=== PATIENT | female | born 1935 | race Caucasian/White ===

== ENCOUNTER 2018-10-04 20:21 | Inpatient (IN) | payer MEDICARE ==
[~2018-10-04] VITALS: Ht 154.9 cm; Wt 67.2 kg
[~2018-10-04 20:21] MED LIST: FER325T PO; METO-169 OR; NOR7.5T GT
--- NOTE | 2018-10-04 22:30 | NUR ---
Direct Admit Note SHERIDAN FRITZ admitted to Telemetry/MS unit as a direct admit per MD DAVILA order. Patient oriented to RACQUEL FERRO, primary RN, unit, room, bed, and unit policies regarding patient care and visiting hours. Patient now on continuous telemetry monitoring, tele box #8. Patient placed on bedside oxygen at 2L, weighed by bedscale and encouraged to call if they need something. Bed locked in lowest position, side rails upx2, call light within reach. All questions and concerns addressed, patient verbalized understanding. MD notified of patients arrival and admit orders received.
[2018-10-04] MEDS ORDERED: NITROGLYCERIN 0.4 MG SL TAB SL PRN (23:15)
[2018-10-04] MEDS ORDERED: MORPHINE SULF INJ 2 MG/ML SYRINGE 1ML IV PRN (23:15)
[2018-10-04 23:50] VITALS: BP 117/70
[2018-10-05 05:45] VITALS: BP 117/71
--- NOTE | 2018-10-05 06:42 | NUR ---
IV insertion IV access obtained, via clean sterile technique by inserting 20 gauge catheter at LEFT FOREARM after 1 attempt(s). IV secured properly. No trauma to site. Patient tolerated well.
--- NOTE | 2018-10-05 06:43 | NUR ---
EKG done as ordered, placed in chart.
[2018-10-05 07:35] LABS: Basophils # (auto) 0.1 uL; Basophils % (auto) 1.1 % (0.0-2.0); Eosinophils # (auto) 0.4 uL; Eosinophils % (auto) 5.3 % (0.0-7.0); Hematocrit 30.2 % (36.0-46.0); Hemoglobin 10.2 g/dL (12.2-16.2); Lymphocytes # (auto) 1.6 uL; Lymphocytes % (auto) 21.5 % (10.0-50.0); Mean Corpuscular Hemoglobin 30.9 pg (28.0-32.0); Mean Corpuscular Hgb Conc. 33.7 g/dL (32.0-36.0); Mean Corpuscular Volume 91.9 fL (80.0-100.0); Monocytes # (auto) 0.7 uL; Monocytes % (auto) 9.5 % (0.0-12.0); Neutrophils # (auto) 4.8 uL; Neutrophils % (auto) 62.6 % (37.0-80.0); Nucleated Red Blood Cells % 0.1 %; Platelet Count (auto) 214 10^3/uL (140-450); Red Blood Cells 3.29 10^6/uL (4.0-5.20); Red Cell Distribution Width 14.5 % (11.8-14.3); White Blood Cell 7.6 10^3/uL (4.4-10.8)
[2018-10-05 07:41] LABS: INR 1.32 (0.9-1.15); Partial Thromboplastin Time 25.3 sec (23.64-32.05)
[2018-10-05 08:08] LABS: Potassium 4.1 mmol/L (3.5-5.1)
[2018-10-05 08:18] LABS: BUN/Creatinine Ratio 18.8; Calcium 8.5 mg/dL (8.5-10.1)
--- NOTE | 2018-10-05 08:40 | NUR ---
PT UP TO BR. HR IS IN 130'S. PT REPORTS FEELING ANXIOUS "NOT QUITE RIGHT" BUT NOT REALLY SOB GIVEN TEACHING ABOUT PROCEDURE, STATES SHE HAS HAD ANGIOGRAM IN PAST, REFRESHED ON DETAILS.
[2018-10-05 09:00] VITALS: BP 132/76
[2018-10-05] MEDS ORDERED: ASPirin 81 mg TAB PO SCH (10:00)
[2018-10-05] MEDS ORDERED: METOPROLOL TARTRATE 50 MG TAB PO SCH (10:00)
[2018-10-05] MEDS: METOPROLOL TARTRATE 50 MG TAB PO SCH (10:25)
--- NOTE | 2018-10-05 11:30 | NUR ---
TO CROP PICKER VIA BED
[2018-10-05] MEDS ORDERED: ANGIOMAX 250 MG VIAL IV ONE (12:29)
[2018-10-05] MEDS ORDERED: SODIUM CHL 0.9% 0 ML ONE (12:30)
[2018-10-05] MEDS ORDERED: LIDOCAINE 2%HCL (LOCAL ANESTH.) INJ 20ML MDV ONE (12:30)
[2018-10-05] MEDS ORDERED: IOHEXOL 350 MG/ML 100ML IJ ONE (12:30)
[2018-10-05] MEDS ORDERED: MIDAZOLAM HCL 1MG/1ML-2 ML VIAL ONE (12:30)
[2018-10-05] MEDS ORDERED: fentaNYL CITRATE 100 MCG/2 ML VL ONE (12:30)
[2018-10-05] MEDS ORDERED: IODIXANOL 320MG/ML 100ML BTL IV ONE (12:36)
[2018-10-05] MEDS ORDERED: RIVAROXABAN 10 MG TAB PO ONE (13:30)
[2018-10-05] MEDS ORDERED: CLOPIDOGREL BISULFATE 75 MG TAB PO ONE (13:30)
--- NOTE | 2018-10-05 14:10 | NUR ---
RETURNED TO BED 246A FROM [employer] WORKER REPORT REC'D FROM [facility]. ANGIO SITE RT GROIN WITH 2X2, SCANT BLOODY DRAINAGE. SITE IS SOFT AND POST TIB AND PEDAL PULSES ARE WEAK BUT PALPABLE. REMAINS IN ATRIAL FIB, CONTROLLED RATE
[2018-10-05] MEDS ORDERED: ONDANSETRON HCL 4 MG/2 ML VIAL ONE (16:05)
[2018-10-05] MEDS ORDERED: ONDANSETRON HCL 4 MG/2 ML VIAL IV PRN (16:15)
[2018-10-05 17:00] VITALS: BP 136/82
--- NOTE | 2018-10-05 19:30 | NUR ---
Opening Shift Note Assumed care of patient, awake and alert, sitting up at bedside eating dinner. No S/S of distress/SOB or pain. Right groin site soft to touch, no hematoma noted. Bed locked in lowest position, side rails upx2, call light within reach. Instructed on POC and to call for assist PRN, will continue to monitor for changes Q1hr and PRN.
[2018-10-05 22:04] VITALS: BP 123/68
[2018-10-06 05:27] VITALS: BP 127/71
--- NOTE | 2018-10-06 08:30 | NUR ---
Opening Shift Note Assumed care of patient, awake and alert. No S/S of distress/SOB or pain. Instructed on POC and to call for assist PRN, will continue to monitor for changes Q1hr and PRN.
--- NOTE | 2018-10-06 08:45 | NUR ---
Last BM on , Dr. Hall paged.
[2018-10-06 08:50] VITALS: BP 150/93
--- NOTE | 2018-10-06 09:13 | NUR ---
HR up to about 150s , Dr. Rafael jovel.
[2018-10-06] MEDS ORDERED: MAGNESIUM CITRATE SOLUTION 300 ML BTL PO ONE (09:15)
[2018-10-06] MEDS: RIVAROXABAN 10 MG TAB PO SCH (09:33)
[2018-10-06] MEDS: METOPROLOL TARTRATE 50 MG TAB PO SCH ×2 (09:33→22:47)
[2018-10-06] MEDS ORDERED: CLOPIDOGREL BISULFATE 75 MG TAB PO SCH (10:00)
--- NOTE | 2018-10-06 10:46 | NUR ---
Received a call from Dr. Hall with new orders, noted and carried out.
[2018-10-06 13:00] VITALS: BP 116/71
[2018-10-06 13:35] LABS: Urine Bacteria NONE SEEN /hpf (None Seen); Urine Blood Negative /uL (Negative); Urine Mucus FEW (None Seen); Urine WBC 2 /hpf (0 - 5)
[2018-10-06] MEDS ORDERED: DIGOXIN 0.25 MG TAB PO ONE (15:00)
[2018-10-06 17:00] VITALS: BP 138/77
--- NOTE | 2018-10-06 19:20 | NUR ---
OPENING NOTE Received report from day shift RN. Patient is A&O X's 4 with no s/s of distress noted. Patient is currently sitting on chair at bedside. Assisted patient back into bed at this time. Educated patient on POC and to use call light when in need of assistance and in need of ambulating. Patient verbalized understanding. Bed is in lowest/locked position with side rails up X's 2 and call light is within reach of patient.
[2018-10-06 21:30] VITALS: BP 133/75
[2018-10-07 05:35] VITALS: BP 114/82
[2018-10-07 09:00] VITALS: BP 120/82
[2018-10-07] MEDS: RIVAROXABAN 10 MG TAB PO SCH (09:25)
[2018-10-07] MEDS: METOPROLOL TARTRATE 50 MG TAB PO SCH ×2 (09:27→22:13)
[2018-10-07] MEDS: DIGOXIN 0.125 MG TAB PO SCH (09:28)
--- NOTE | 2018-10-07 12:44 | NUR ---
Nutrition Assessment Notes please see attached link for complete assessment Est. Needs BW 67 [id number] kcal (23-25 kcal/kgBW), 53-67 gms pro (0.8-1.0 gms/kgBW d/t elev RFT ). Will continue to monitor pertinent labs and reassess nutrient need prn. Addendum: 10/07/18 at [address] Amended: Links added.
[2018-10-07 13:00] VITALS: BP 133/83
[2018-10-07 17:00] VITALS: BP 121/76
--- NOTE | 2018-10-07 19:20 | NUR ---
OPENING NOTE Received report from day shift RN. Patient is sitting in chair at bedside with bedside table in front of her for safety. Patient shows no s/s of distress. Patient reports no pain. Educated patient on POC and to use call light when in need of assistance. Patient verbalized understanding. Call light is within reach of patient. Will continue care.
[2018-10-07 22:00] VITALS: BP 119/81
[2018-10-08 05:00] VITALS: BP 129/79
--- NOTE | 2018-10-08 06:51 | NUR ---
ROUNDS Patient resting in chair at bedside. No s/s of distress.
[2018-10-08 09:00] VITALS: BP 123/78
[2018-10-08] MEDS: METOPROLOL TARTRATE 50 MG TAB PO SCH ×2 (09:22→21:33)
[2018-10-08] MEDS: RIVAROXABAN 10 MG TAB PO SCH (09:22)
[2018-10-08] MEDS: DIGOXIN 0.125 MG TAB PO SCH (09:23)
--- NOTE | 2018-10-08 11:22 | NUR ---
Patient's heart rhythm switched from atrial fibrillation to atrial flutter. Dr. Hall notified.
--- NOTE | 2018-10-08 12:10 | NUR ---
EKG obtained as requested by Dr. Hall. No new orders received.
[2018-10-08 13:00] VITALS: BP 144/84
--- NOTE | 2018-10-08 14:27 | NUR ---
Received discharge orders from Dr. Hall for tomorrow morning. Per MD, home health does not need to be set up for discharge.
--- NOTE | 2018-10-08 15:00 | NUR ---
Received call from Ana from [facility]. Faxed requested clinical documents. . Phone number is [phone].
[2018-10-08 17:00] VITALS: BP 141/74
[2018-10-08] MEDS ORDERED: IBUPROFEN 400 MG TAB PO PRN (17:15)
--- NOTE | 2018-10-08 19:17 | NUR ---
Change of shift given to night cleaner RN. No distress noted.
--- NOTE | 2018-10-08 19:27 | NUR ---
Opening Shift Note Assumed care of patient, awake and alert x 4. No S/S of distress/SOB Bed is in lowest position and locked. Call light within reach. Board updated. Tele box number matches monitor and leads are in correct placement. Instructed on POC and to call for assist PRN, will continue to monitor for changes Q1hr and PRN.
--- NOTE | 2018-10-08 20:14 | NUR ---
Patient taken off supplemental oxygen to see if she can breathe well and oxygenate without nasal canula. O2 sat currently 95% on RA.
--- NOTE | 2018-10-08 21:32 | NUR ---
Patient is currently 96% on RA. Will continue to try to wean patient off supplemental oxygen.
[2018-10-08 22:00] VITALS: BP 123/53
--- NOTE | 2018-10-09 01:31 | NUR ---
Patient placed back on oxygen at 2l/min NC. Patient reported some shortness of breath while rounding on patient. Patient's oxygen saturation was 86% on RA. Patient placed back on nasal canula at 2 l/min. O2 sat lilly to 94%. Will continue to monitor.
--- NOTE | 2018-10-09 04:02 | NUR ---
Nasal canula removed. Patient back on RA.
--- NOTE | 2018-10-09 04:39 | NUR ---
Patient's O2 sat is holding stable at 96% on RA.
[2018-10-09 05:00] VITALS: BP 134/75
--- NOTE | 2018-10-09 06:38 | NUR ---
Patient's O2 sat is 96% on RA.
[2018-10-09 06:43] VITALS: BP 134/75
--- NOTE | 2018-10-09 08:30 | NUR ---
Patient right groin assessed. No hematoma noted on palpitation and observation. Incision is asymptomatic and open to air.
[2018-10-09 09:19] VITALS: BP 142/96
[2018-10-09] MEDS: METOPROLOL TARTRATE 50 MG TAB PO SCH (09:29)
[2018-10-09] MEDS: RIVAROXABAN 10 MG TAB PO SCH (09:30)
[2018-10-09] MEDS: DIGOXIN 0.125 MG TAB PO SCH (10:00)
--- NOTE | 2018-10-09 10:02 | NUR ---
Prescriptions called in to patient's preferred pharmacy as ordered by . Dr. Hall notified of copay. Awaiting call back.
--- NOTE | 2018-10-09 10:30 | NUR ---
Dr. Hall returned page per MD continue with Discharge, Patient is to return to Dr. Ennis office tomorrow for xarelto prescription.
[2018-10-09 12:20] VITALS: BP 145/83
--- NOTE | 2018-10-09 12:51 | NUR ---
Patient stated she had a DVT at [facility] "this Wednesday." Dr. Hall notified. Per MD, continue with discharge and light activity. Xarelto dose given today and per MD have patient return to office tomorrow morning for additional prescription. Patient and family verbalized understanding. Proceed with discharge.
[2018-10-09 13:00] VITALS: BP 128/96
[2018-10-09 13:10] VITALS: BP 145/83
--- NOTE | 2018-10-09 13:43 | NUR ---
Discharge instructions given as ordered. Encourage to follow up with PMD as instructed. All questions and concerns addressed. Patient verbalized understanding. Medication reconciliation form completed and copy given to patient. Patient denies home medications held in pharmacy. IV removed with catheter intact, pressure dressing applied. Telemetry unit returned to ICU. Patient taken to vehicle via wheelchair with all personal belongings, accompanied by staff and family member. No distress noted at time of departure. Patient and family verbalized understanding to car pick up driver prescriptions at patients preferred pharmacy. Patient and family verbalized understanding to return to Dr. Ennis office tomorrow morning for additional Xarelto prescription.
== END 2018-10-09 13:43 | disposition home health service (06) | DRG 287 ==
LOC: TELE 22:49 → TELE-EAST 22:57
PROVIDERS: ADMIT Internal Medicine Cardiovascular Disease; ATTEND Internal Medicine Cardiovascular Disease
PROC: B2111ZZ Fluoroscopy of Multiple Coronary Arteries using Low Osmolar Contrast (ICD-10-PCS; principal; 2018-10-05)
PROC: B41C1ZZ Fluoroscopy of Pelvic Arteries using Low Osmolar Contrast (ICD-10-PCS; 2018-10-05)
DX: I48.1 Persistent atrial fibrillation (principal); D68.59 Other primary thrombophilia; I50.20 Unspecified systolic (congestive) heart failure; I25.5 Ischemic cardiomyopathy; I11.0 Hypertensive heart disease with heart failure; I08.0 Rheumatic disorders of both mitral and aortic valves; D64.9 Anemia, unspecified; I25.10 Atherosclerotic heart disease of native coronary artery without angina pectoris; N28.9 Disorder of kidney and ureter, unspecified; Z95.5 Presence of coronary angioplasty implant and graft; Z87.891 Personal history of nicotine dependence; Z91.018 Allergy to other foods
CPT/HCPCS: 36415; 71045; 75736; 80048; 81001; 82962; 85025; 85610; 85730; 93005; 93306; 93454; 99152; G0378; J2250; J2405; Q9967

== ENCOUNTER 2018-11-18 23:28 | Inpatient (IN) | payer MEDICARE ==
[~2018-11-18] VITALS: Ht 170.2 cm; Wt 69.0 kg
[2018-11-18 23:30] VITALS: BP 122/81
[2018-11-19] VITALS (35 sets, daily range): BP systolic 100–141; BP diastolic 58–94
[2018-11-19 04:20] LABS: Eosinophils # (auto) 0.5 uL; Monocytes # (auto) 0.9 uL; Neutrophils # (auto) 3.9 uL
[2018-11-19 04:24] LABS: Basophils # (auto) 0.2 uL; Basophils % (auto) 2.6 % (0.0-2.0); Eosinophils % (auto) 6.1 % (0.0-7.0); Hematocrit 24.1 % (36.0-46.0); Lymphocytes # (auto) 2.4 uL; Lymphocytes % (auto) 30.3 % (10.0-50.0); Mean Corpuscular Hemoglobin 30.9 pg (28.0-32.0); Mean Corpuscular Volume 93.5 fL (80.0-100.0); Monocytes % (auto) 11.6 % (0.0-12.0); Neutrophils % (auto) 49.4 % (37.0-80.0); Platelet Count (auto) 308 10^3/uL (140-450); Red Blood Cells 2.58 10^6/uL (4.0-5.20); Red Cell Distribution Width 17.3 % (11.8-14.3)
[2018-11-19 04:49] LABS: Alanine Aminotransferase 49 U/L (13-56); Albumin 2.8 g/dL (3.4-5.0); Alkaline Phosphatase 66 U/L (45-117); Aspartate Aminotransferase 24 U/L (15-37); BUN/Creatinine Ratio 14.4; Bilirubin, Total 0.4 mg/dL (0.2-1.0); Blood Urea Nitrogen 16 mg/dL (7-18); Calcium 8.2 mg/dL (8.5-10.1); Carbon Dioxide 20 mmol/L (21-32); GFR African American 61 mL/min; GFR Non-African American 50 mL/min; Glucose 89 mg/dL (74-106); Total Protein 6.1 g/dL (6.4-8.2)
[2018-11-19 04:51] LABS: Anion Gap 8 (5-15); Chloride 115 mmol/L (98-107); Potassium 4.2 mmol/L (3.5-5.1); Sodium 143 mmol/L (136-145)
--- NOTE | 2018-11-19 07:30 | NUR ---
OPENING SHIFT NOTE REPORT RECEIVED FROM DENTAL ASSISTANT INSTRUCTOR RN, MORNING ASSESSMENT PERFORMED AND DOCUMENTED. 83 YEAR OLD FEMALE, SITTING UP IN BED, ALERT AND ORIENTED X4, NO DISTRESS NOTED, RESPIRATIONS EVEN AND UNLABORED ON ROOM AIR, VSS AND DOCUMENTED. PATIENT DENIES PAIN OR DISCOMFORT AT THIS TIME. PATIENT ADJUSTED IN BED, TOLERATED WELL. WOUND CARE ASSESSMENT PERFORMED, NOTED SKIN TEAR TO LEFT BUTTOCK - WOUND CARE CONSULT AND PICS WILL BE TAKEN. CALL LIGHT AND ALL PERSONAL BELONGINGS WITHIN REACH. FALL AND SAFETY PRECAUTIONS IN PLACE.
--- NOTE | 2018-11-19 08:55 | NUR ---
PATIENT SITTING UP ON EDGE OF BED PATIENT REPORTING "PAIN TO B/L LOWER EXTREMITIES, FEELS LIKE A SHOCKING PAIN, I USUALLY TAKE TYLENOL AT HOME FOR PAIN". PATIENT REQUESTED TO DANGLE HER LEGS, SITTING UP ON EDGE OF BED AND TOLERATING WELL. BEDSIDE TABLE AT BEDSIDE, WATER AND ALL PERSONAL BELONGINGS, PATIENT TOLERATING WELL. PAGED DR DAVILA, AWAITING RESPONSE.
--- NOTE | 2018-11-19 10:16 | NUR ---
RETURN CALL FROM DR ADVILA ORDERS FOR SOMA 350 PO BID RECEIVED, PATIENT AWARE.
[2018-11-19] MEDS ORDERED: CARISOPRODOL 350 MG TAB PO ONE (10:30)
[2018-11-19] MEDS: AMIODARONE HCL 200 MG TAB PO SCH ×2 (11:15→22:14)
--- NOTE | 2018-11-19 13:42 | NUR ---
DR DAVILA AT BEDSIDE UPDATED ON PATIENT'S STATUS, ORDERS FOR 1 UNIT PRBC RECEIVED AND MEDICATION TO DECREASE HEART RATE. REGARDING DOWNGRADE, DR DAVILA STATED "NO NOT UNIT HEART RATE IS CONTROLLED, HOWEVER IF ICU REALLY NEEDS A BED CALL ME FIRST BEFORE DOWNGRADING". FRANCISCO, CHARGE NURSE AWARE.
[2018-11-19] MEDS ORDERED: DIGOXIN (250MCG/ML) 2 ML AMPULE IV SCH (13:45)
[2018-11-19] MEDS: METOPROLOL SUCCINATE XL 50 MG TAB PO SCH ×2 (14:20→22:15)
--- NOTE | 2018-11-19 15:39 | NUR ---
PAGED DR DAVILA FOR BLOOD CONSENT AWAITING T/O FROM DR DAVILA FOR BLOOD CONSENT.
--- NOTE | 2018-11-19 17:19 | NUR ---
SHORE CATHETER CHANGED PATIENT NOTIFIED THIS NURSE AND JEANCARLOS, STUDENT NURSE "I HAVE TO PEE AND I'M GOING TO PEE ON ALL THE SHEETS". PATIENT AWARE OF SHORE CATHETER PLACEMENT BUT STATED SHE STILL FELT THE URGE, PATIENT SHORE CATHETER READJUSTED, THEN ASSISTED TO EDGE OF BED, THEN BEDSIDE COMMODE WITH NO SUCCESS, PATIENT CONTINUES TO REPORT URGE TO PEE. SHORE CATHETER DISCONTINUED WHILE ON BEDSIDE COMMODE AND NO URINE PRESENT ONLY PASSING GAS. PATIENT ASSISTED BACK TO BED AND 16 GAMBIAN SHORE CATHETER REINSERTED VIA STERILE TECHNIQUE AFTER OBTAINING VERBAL CONSENT FROM PATIENT. PATIENT TOLERATED WELL, 5 MLS COLLECTED AND SENT TO LAB FOR UA AND UA CULTURE. COMFORT MEASURES PROVIDED, FALL AND SAFETY PRECAUTIONS IN PLACE.
--- NOTE | 2018-11-19 17:39 | NUR ---
BLOOD TRANSFUSION STARTED/IV DC'D/INSERTED VSS AND DOCUMENTED, DISCUSSED S/S WITH PATIENT, PATIENT VERBALIZED UNDERSTANDING. IV TO RIGHT AC DISCONTINUED WITH CATHETER FULLY INTACT. IV REINSERTED BY JEANCARLOS STUDENT RN VIA STERILE TECHNIQUE BY INSERTING 20 GAUGE CATHETER AFTER ONE ATTEMPT. IV SECURED PROPERLY. NO TRAUMA TO SITE, PATIENT TOLERATED WELL.
--- NOTE | 2018-11-19 18:00 | NUR ---
15 MIN TRANSFUSION REASSESSMENT BLOOD TRANSFUSING, VSS AND DOCUMENTED. PATIENT DENIES ANY PAIN, DISCOMFORT OF REACTION TO BLOOD TRANSFUSION. PATIENT CONVERSING APPROPRIATELY. INCREASED BLOOD RATE TO 120 MLS/HR. CALL LIGHT WITHIN REACH.
[2018-11-19] MEDS: RIVAROXABAN 15 MG TAB PO SCH (18:03)
--- NOTE | 2018-11-19 18:35 | NUR ---
FAMILY AT BEDSIDE
[2018-11-19 19:10] LABS: Urine Amorphous Crystal FEW /hpf (None Seen); Urine Bacteria FEW /hpf (None Seen); Urine Blood 2+ /uL (Negative); Urine Hyaline Cast FEW /lpf (0 - 2); Urine Mucus FEW (None Seen); Urine Specific Gravity 1.021 (1.001-1.035); Urine WBC 10 /hpf (0 - 5)
--- NOTE | 2018-11-19 19:21 | NUR ---
END OF SHIFT NOTE BLOOD TRANSFUSION IN PROCESS, ENDORSED COMPLETION AND DOCUMENTATION WELL CONTINUED CARE TO TOOL SHARPENER RN.
--- NOTE | 2018-11-19 19:30 | NUR ---
ADMITTED WITH ATRIAL FIB RVR A DIRECT ADMIT FROM [facility] TO DR DAVILA. RECEIVED AMIODARONE, DIGOXIN AND TOPROL. HR IN THE 90S. REMAINS IN ATRIAL FIB. ATE 100% OF MEAL. SHORE IN PLACE. HYPERPIGMENTATION LOWER EXTREMITIES. NO IV FLUID. SBP NORMAL. UPC FINISHING AND FLUSHING THROUGH.
--- NOTE | 2018-11-19 20:00 | NUR ---
ADMITTED THIS MORNING A DIRECT ADMIT FROM [facility]. ATRIAL FIB RVR CONTROLLED WITH AMIODARONE, DIGOXIN AND METOPROLOL. HR 94. SBP STABLE. NO FEVER. 2LNP. O2 SATURATION 99%. LUNGS CLEAR. ABDOMEN SOFT. NO BM TODAY. SHORE IN PLACED DRAINING CLEAR YELLOW LIQUID TO DOWN DRAIN BAG. ALERT. ORIENTED. 2 SCABS ON LIP. MOISTURE APPLIED TO LIPS. 2 SMALL SCABS ON LEFT FOREARM COVERED WITH A FOAM DRESSING. SKIN IS VERY TANNED, DRY. BILATERAL LOWER LEG PITTING EDEMA. HYPERPIGMENTATION OF LOWER EXTREMITIES. DIFFICULTY FEELING PULSES. NO PEDAL ON THE RIGHT, DOPPLER BILATERAL POSTIB AND LEFT PEDAL. LEFT ANKLE IS SHRUNKEN, THE RIGHT IS SWOLLEN.
[2018-11-19] MEDS ORDERED: METOPROLOL SUCCINATE XL 50 MG TAB PO SCH (22:00)
--- NOTE | 2018-11-19 22:00 | NUR ---
PATIENT IS AWAKE. ORIENTED AND YET ASKING WHY ALL THE LIGHTS IN THE UNIT ARE ON. FEELS LIKE SHE HAS TO URINATE. KNOWS SHE HAS A CATHETER. UP IN THE CHAIR, BACK TO BED, UP IN THE CHAIR. FRUSTRATED. UNABLE TO SLEEP. CALL LIGHT NEAR HER.
[2018-11-19] MEDS: CARISOPRODOL 350 MG TAB PO SCH (22:14)
--- NOTE | 2018-11-19 23:00 | NUR ---
PLACED BACK IN BED. HOB ELEVATED. 3 BLANKETS.
[2018-11-20] VITALS (14 sets, daily range): BP systolic 101–136; BP diastolic 62–85
--- NOTE | 2018-11-20 | NUR ---
VSS. ATRIAL FIB CONTROLLED RATE 90-100. SBP 120-130. ALERT. ORIENTED. LUNGS CLEAR. ROOM AIR. BILATERAL LOWER LEG PITTING EDEMA. FEET COOL. LEGS WARM. PEDAL POSTIB PULSES WITH DOPPLER ONLY. NO PEDAL RIGHT FOOT. ONE PERIPHERAL IV WITH NO FLUID GOING. TOOK JUST A FEW SIPS WITH 2200 MEDS. SHORE: ADEQUATE OUTPUT.
--- NOTE | 2018-11-20 02:00 | NUR ---
VSS. ATRIAL FIB RATE 85-100. SLEEPING OFF AND ON. ONE PERIPHERAL IV SHOWS NO REDNESS OR SWELLING. SHORE DRAINING CLEAR YELLOW LIQUID TO DOWN DRAIN BAG.
--- NOTE | 2018-11-20 03:27 | NUR ---
AM LAB DRAW
--- NOTE | 2018-11-20 04:00 | NUR ---
PATIENT STATED THAT SHE HAS NOT HAD A DECREASED IN LEG CRAMPS SINCE TAKING THE SOMA. PATIENT STATED THAT KEEPING HER LEGS WARM IS A BETTER ANSWER. VSS. SLEEPING OFF AND ON. IV HEPLOCK PATENT. NO REDNESS OR SWELLING AT SITE. PITTING EDEMA PERSISTS IN HER LEGS. LUNGS CLEAR. ATRIAL FIB CONTROLLED RATE 79-90.
[2018-11-20 04:38] LABS: Basophils # (auto) 0.1 uL; Eosinophils # (auto) 0.3 uL; Eosinophils % (auto) 3.8 % (0.0-7.0); Hematocrit 27.6 % (36.0-46.0); Hemoglobin 9.7 g/dL (12.2-16.2); Lymphocytes % (auto) 22.8 % (10.0-50.0); Mean Corpuscular Hemoglobin 32.5 pg (28.0-32.0); Mean Corpuscular Hgb Conc. 35.2 g/dL (32.0-36.0); Mean Corpuscular Volume 92.4 fL (80.0-100.0); Monocytes # (auto) 0.9 uL; Monocytes % (auto) 10.6 % (0.0-12.0); Neutrophils # (auto) 5.3 uL; Neutrophils % (auto) 61.8 % (37.0-80.0); Nucleated Red Blood Cells % 0.1 %; Platelet Count (auto) 306 10^3/uL (140-450); Red Blood Cells 2.98 10^6/uL (4.0-5.20); Red Cell Distribution Width 16.2 % (11.8-14.3); White Blood Cell 8.6 10^3/uL (4.4-10.8)
[2018-11-20 04:54] LABS: Potassium 4.4 mmol/L (3.5-5.1)
[2018-11-20 05:00] LABS: BUN/Creatinine Ratio 18.9
--- NOTE | 2018-11-20 06:00 | NUR ---
WOKE UP . BOOSTED HER UP IN BED. LIKES TO SIT AT ABOUT A 40 DEGREE ANGLE. ATRIAL FIB CONTROLLED RATE 78-90. ONE HEPLOCK NOT IN USE.
--- NOTE | 2018-11-20 08:50 | NUR ---
OPENING Received report from Jhonatan altamirano RN. Care initiated and initial assessment completed.
--- NOTE | 2018-11-20 09:30 | NUR ---
SITTING Patient sitting at the edge of bed reading and finishing breakfast.
[2018-11-20] MEDS: CARISOPRODOL 350 MG TAB PO SCH ×2 (10:20→21:36)
[2018-11-20] MEDS: AMIODARONE HCL 200 MG TAB PO SCH ×2 (10:20→21:35)
[2018-11-20] MEDS: METOPROLOL SUCCINATE XL 50 MG TAB PO SCH ×2 (10:21→21:36)
--- NOTE | 2018-11-20 10:25 | NUR ---
BACK IN BED Patient is back in bed resting at this time. Required moderate assistance.
[2018-11-20] MEDS ORDERED: FUROSEMIDE 40 MG/4 ML VIAL IV ONE (12:00)
[2018-11-20] MEDS ORDERED: POTASSIUM CHL 20MEQ/100ML 100 ML IV ONE (12:00)
--- NOTE | 2018-11-20 12:30 | NUR ---
REPOSITIONED Repositioned patient in bed. Patient tolerated well.
--- NOTE | 2018-11-20 12:45 | NUR ---
LUNCH Patient in bed in high fowlers eating lunch.
--- NOTE | 2018-11-20 13:00 | NUR ---
REPORT GIVEN Gave report to Ines ARMSTRONG. Bed assignment 276A.
--- NOTE | 2018-11-20 13:55 | NUR ---
Received patient from ICU via bed, patient running NS and Pot. chl 20 mEq at 10ml/hr. Patient oriented to room, call light within reach and bed in locked and lowest position. Tele box # 56. VS 98.8, 70bpm, 18RR, 94% on Room air, bp 106/80. Will continue to monitor.
--- NOTE | 2018-11-20 13:58 | NUR ---
TRANSFERRED Patient transferred to [facility], room 276A to Ines ARMSTRONG. Patient was connected to tele monitor. Patient was able to ambulate to bed.
[2018-11-20] MEDS: RIVAROXABAN 15 MG TAB PO SCH (17:48)
[2018-11-21 05:00] VITALS: BP 117/78
--- NOTE | 2018-11-21 06:37 | NUR ---
Ramirez catheter Patients ramirez catheter was accidentally removed. Patient verbalized "I tried going to the bathroom and i forgot i had a ramirez on". Will contact Dr. Hall for order to place a new ramirez catheter.
--- NOTE | 2018-11-21 07:15 | NUR ---
Open Shift Note Received report on patient, awake and sitting on side of bed. Patient shows no signs of distress at this time. Discussed POC with patient and instructed patient to call before getting up for assistance to the restroom. Patient verbalized understanding and stated they do not want another ramirez placed. Bed in lowest locked position, side rails up x2 and call light within reach. Bed alarm on. Will continue to monitor.
[2018-11-21 09:30] VITALS: BP 124/64
[2018-11-21] MEDS: AMIODARONE HCL 200 MG TAB PO SCH ×3 (10:07→22:11)
[2018-11-21] MEDS: CARISOPRODOL 350 MG TAB PO SCH ×3 (10:07→22:11)
[2018-11-21] MEDS: METOPROLOL SUCCINATE XL 50 MG TAB PO SCH ×3 (10:08→22:11)
--- NOTE | 2018-11-21 12:00 | NUR ---
WOUND CARE NOTE: PATIENT RECENTLY ADMITTED WITH FOOT PAIN. CURRENT SCARLETT SCORE IS 18. SHE WAS NOTED UPON ADMIT TO HAVE SMALL SKIN TEAR TO THE LEFT BUTTOCK. PATIENT AWARE OF WOUND. WOUND MEASURES 1 X 1 CM. WOUND IS PARTIAL THICKNESS, WITH PINK WOUND BED AND PERIWOUND. LIGHT SEROUS DRAINAGE NOTED. SKIN/WOUND CARE PLAN IMPLEMENTED. RECOMMEND: DAILY/PRN DRESSING CHANGE TO SKIN TEAR ON LEFT BUTTOCK WITH THERAHONEY, OPTIFOAM GENTLE DRESSING, SKIN/WOUND CARE PLAN, DIETARY CONSULT, CONTINUED MONITORING BY WOUND CARE TEAM. Addendum: 11/21/18 at 1901 by Louise Vasquez RN Amended: Links added.
[2018-11-21] MEDS: GABAPENTIN 100 MG CAP PO SCH ×3 (13:06→22:11)
[2018-11-21 13:10] VITALS: BP 139/70
--- NOTE | 2018-11-21 14:58 | NUR ---
NUTRITION ASSESSMENT NOTES Please refer to link notes of nutrition screen form filed under the intervention section of the plan of care for further details. Est. Needs: 1800 kcal to 2150 kcal (25-30 kcal/kgBW), 58 gms to 73 gms pro (0.8-1.0 gms/kgBW). Will continue to monitor pertinent labs and reassess nutrient need prn Thank you. Addendum: 11/21/18 at [address] Amended: Links added.
--- NOTE | 2018-11-21 16:50 | NUR ---
Paged Dr Hall Paged Dr Hall to inform him of patient's positive urine culture. Awaiting new orders.
[2018-11-21 17:00] VITALS: BP 125/74
--- NOTE | 2018-11-21 17:04 | NUR ---
Spoke With Pharmacy and Dr Hall Pharmacy stated there is a counter indication with Levaquin and Amiodarone. Clarified with Dr Hall if he would like to continue with order for Levaquin or switch to Rocephin per Pharmacy's recommendation. Dr Hall stated he would still like Levaquin. New orders in place.
[2018-11-21] MEDS ORDERED: LEVOFLOXACIN 500MG 100 ML IV ONE (17:15)
[2018-11-21] MEDS: RIVAROXABAN 15 MG TAB PO SCH (17:49)
--- NOTE | 2018-11-21 19:08 | NUR ---
Opening Shift Note Assumed care of patient, awake and alert. No S/S of distress/SOB or pain. Instructed on POC and to call for assist PRN, will continue to monitor for changes Q1hr and PRN. Side rails up x2. Bed locked in lowest position. Call light within reach. Family at bedside.
--- NOTE | 2018-11-21 19:26 | NUR ---
Closing Note Patient sitting up in bed, shows no signs of distress at this time. Bed in lowest locked position, side rails up x2 and call light within reach.
[2018-11-21 22:00] VITALS: BP 124/66
[2018-11-22 05:32] VITALS: BP 117/69
[2018-11-22] MEDS: GABAPENTIN 100 MG CAP PO SCH ×3 (05:42→22:01)
--- NOTE | 2018-11-22 07:15 | NUR ---
Open Shift Note Received report on patient, awake and sitting up in bed. Patient shows no signs of distress at this time but states "Sorry I'm so grumpy". Discussed POC with patient, reinforcement needed. Bed in lowest locked position, side rails up x2 and call light within reach. Bed alarm on. Walker present at bedside. Will continue to monitor.
--- NOTE | 2018-11-22 07:24 | NUR ---
Endorsed care to day shift RN.
[2018-11-22 09:00] VITALS: BP 145/71
[2018-11-22] MEDS: AMIODARONE HCL 200 MG TAB PO SCH ×2 (09:38→22:01)
[2018-11-22] MEDS: CARISOPRODOL 350 MG TAB PO SCH ×2 (09:38→22:01)
[2018-11-22] MEDS: METOPROLOL SUCCINATE XL 50 MG TAB PO SCH ×2 (09:39→22:04)
[2018-11-22] MEDS: LEVOFLOXACIN 250MG 50 ML IV SCH (09:39)
[2018-11-22 13:00] VITALS: BP 126/62
[2018-11-22 17:14] VITALS: BP 121/78
[2018-11-22] MEDS: RIVAROXABAN 15 MG TAB PO SCH (17:53)
--- NOTE | 2018-11-22 19:30 | NUR ---
Closing Note Patient sitting up in bed, shows no signs of distress at this time. Endorsed care to NOC nurse.
[2018-11-22 21:53] VITALS: BP 129/76
[2018-11-23 05:42] VITALS: BP 121/60
[2018-11-23] MEDS: GABAPENTIN 100 MG CAP PO SCH ×3 (06:00→21:50)
--- NOTE | 2018-11-23 07:36 | NUR ---
Endorsed care to day shift RN.
[2018-11-23 08:53] VITALS: BP 136/59
[2018-11-23] MEDS: CARISOPRODOL 350 MG TAB PO SCH ×2 (09:29→21:50)
[2018-11-23] MEDS: AMIODARONE HCL 200 MG TAB PO SCH ×2 (09:30→21:51)
[2018-11-23] MEDS: METOPROLOL SUCCINATE XL 50 MG TAB PO SCH ×2 (09:30→21:50)
[2018-11-23] MEDS: LEVOFLOXACIN 250MG 50 ML IV SCH (10:50)
[2018-11-23 12:53] VITALS: BP 117/73
[2018-11-23] MEDS ORDERED: SODIUM FERR GLUC 62.5MG/5ML 125 MG in SODIUM CHL 0.9% 100 ML IV ONE (13:30)
[2018-11-23] MEDS ORDERED: EPOETIN ALFA 10,000 UNIT/1 ML VIAL SC ONE (13:45)
[2018-11-23 14:13] LABS: % Iron Saturation 14.3 % (15-50)
[2018-11-23 14:15] LABS: Albumin 2.5 g/dL (3.4-5.0); BUN/Creatinine Ratio 19.4; Calcium 8.4 mg/dL (8.5-10.1); Potassium 4.7 mmol/L (3.5-5.1)
[2018-11-23] MEDS ORDERED: IRON SUCROSE COMPLEX 200 MG in SODIUM CHL 0.9% 100 ML IV ONE (14:15)
[2018-11-23 14:16] LABS: Basophils # (auto) 0.1 uL; Basophils % (auto) 0.8 % (0.0-2.0); Eosinophils # (auto) 0.3 uL; Eosinophils % (auto) 4.2 % (0.0-7.0); Hematocrit 30.7 % (36.0-46.0); Lymphocytes # (auto) 1.4 uL; Lymphocytes % (auto) 19.2 % (10.0-50.0); Mean Corpuscular Hemoglobin 30.4 pg (28.0-32.0); Mean Corpuscular Hgb Conc. 32.5 g/dL (32.0-36.0); Mean Corpuscular Volume 93.7 fL (80.0-100.0); Monocytes # (auto) 0.9 uL; Monocytes % (auto) 11.5 % (0.0-12.0); Neutrophils # (auto) 4.8 uL; Neutrophils % (auto) 64.3 % (37.0-80.0); Platelet Count (auto) 362 10^3/uL (140-450); Red Blood Cells 3.27 10^6/uL (4.0-5.20); Red Cell Distribution Width 17.3 % (11.8-14.3); White Blood Cell 7.4 10^3/uL (4.4-10.8)
[2018-11-23 14:18] LABS: Bilirubin, Total 0.4 mg/dL (0.2-1.0); Total Protein 6.2 g/dL (6.4-8.2)
--- NOTE | 2018-11-23 15:15 | NUR ---
LEFT WRIST IV NOTED TO BE LEAKING, REMOVED, CANULA INTACT PT TOLERATED WELL. 20 GAUGE IV PLACED IN RIGHT FOREARM, ONE STICK, PT TOLERATED WELL, WILL CONTINUE TO MONITOR
--- NOTE | 2018-11-23 15:26 | NUR ---
assessment Patient is a 83 year old female who is alert and oriented. Patients cognitive abilities are intact. Prior to admission patient lived home alone and functioned independently. Patient informed me she is able to care for her own ADLs. Per patient she will return home to her prior living arrangements post discharge and family will transport her home. Patient informed me she has a fww for home use. Patients emergency contact is her daughter Verito. Patient doesnt remember the number. Patient informed me her PCP is Dr Hall. Patient informed me she has been waiting for [address] Hall. Patient informed me she feels safe returning home on discharge. Patient may benefit from home health safety eval on discharge. I informed patient she has a right to speak to a social worker health services regarding all care. I informed patient she has a right to participate in any and all discharge planning. Patient does not have a POA and advanced directive. I have offered patient information on POA and advanced directives. I informed the patient the advantages and benefits of having an Advanced Directive. Patient verbalized understanding and agreed to discharge plan. Addendum: 11/23/18 at 1529 by Madonna BROOKS Amended: Links added.
--- NOTE | 2018-11-23 16:29 | NUR ---
DOCTOR GIOVANNI AT BEDSIDE, DISCUSSING PLAN OF CARE WITH PATIENT.
[2018-11-23 17:00] VITALS: BP 132/92
[2018-11-23] MEDS: RIVAROXABAN 15 MG TAB PO SCH (17:44)
--- NOTE | 2018-11-23 19:35 | NUR ---
Opening Shift Note Assumed care of patient, awake and alert. No S/S of distress/SOB or pain. Bed locked in lowest position, side rails upx2, call light within reach. Instructed on POC and to call for assist PRN, will continue to monitor for changes Q1hr and PRN.
--- NOTE | 2018-11-23 20:00 | NUR ---
Neuro request: spoke with family regarding concerns with patient's forgetfulness, increased anger, paranoia regarding personal issues. Family requesting neuro consult to rule out or confirm beginning stages of dementia. Requesting patient not be told of personal request in order to maintain family solidarity. Call placed to Dr. Hall who agreed and stated ok to order consult to be done before discharge. Primary RN Mee santos. Dr. Self can call daughter Verito at [phone]
[2018-11-23 22:00] VITALS: BP 132/77
[2018-11-24 05:37] VITALS: BP 116/63
[2018-11-24] MEDS: GABAPENTIN 100 MG CAP PO SCH ×2 (06:27→13:37)
--- NOTE | 2018-11-24 07:41 | NUR ---
Opening Note Assumed pt care from [facility] nurse. Pt is a/ox4; slightly lethargic and having difficulty answering questions; pt states " I am still asleep". Pt is currently laying in bed with no complaints. Discussed POC with pt; pt verbalized understanding; kept stating "I am still asleep" throughout the assessment. Safety measures maintained with call light within reach, bed in lowest position and side rails up. Will continue to monitor for changes q1hr and prn.
--- NOTE | 2018-11-24 08:00 | NUR ---
Dr Self at Bedside MD at bedside to assess
[2018-11-24 09:00] VITALS: BP 145/76
[2018-11-24] MEDS ORDERED: LORazepam 2MG/ML-1ML VIAL IV PRN (09:15)
[2018-11-24] MEDS: CARISOPRODOL 350 MG TAB PO SCH (09:20)
[2018-11-24] MEDS: METOPROLOL SUCCINATE XL 50 MG TAB PO SCH (09:20)
[2018-11-24] MEDS: LEVOFLOXACIN 250MG 50 ML IV SCH (09:20)
[2018-11-24] MEDS: AMIODARONE HCL 200 MG TAB PO SCH (09:21)
--- NOTE | 2018-11-24 09:28 | NUR ---
re-assessment Per consult patient cannot be independent. Please eval her living situation. Patient informed me she is independent with her ADL's, cooking, light cleaning of picking up things and putting them away, bathing, and dressing. I called patients daughter Verito who lives on the property with patient and per Verito patient does bathe, dress herself, light meals such as microwave and refrigerator food. Per Verito patient does not use the stove anymore. Patient has a cleaning lady weekly for heavy cleaning. Per Verito she and her are on the property and are with the patient daily. Addendum: 11/24/18 at 3491 by Madonna Henry Amended: Links added.
--- NOTE | 2018-11-24 11:01 | NUR ---
Pt Refused Wound Dressing Change Provided education regarding purpose of wound care and dressing change; pt stated "its fine, I do not need it". Will continue to monitor as well as try again.
[2018-11-24 11:38] LABS: Folate (Folic Acid) 10.86 ng/mL (5.38-24)
--- NOTE | 2018-11-24 12:11 | NUR ---
PT TAKEN TO MRI VIA WHEELCHAIR DISCUSSED WITH PT THE PURPOSE OF EXAM; PT VERBALIZED UNDERSTANDING.
--- NOTE | 2018-11-24 12:56 | NUR ---
Nutrition Consult and Follow-up Notes Wt.: 69.0 kg as of yesterday Pt's asleep, no immediate family member at bedside during rounds this morning. Pt's no signs of distress noted earlier, currently on 2 gms Na diet with adequate PO intake aeb 90% ave. consumed meals (x6) in last 2.5 days. Noted pt's for active Wound and Neurology consults. Est. Needs: 1800 kcal to 2150 kcal (25-30 kcal/kgBW), 58 gms to 73 gms pro (0.8-1.0 gms/kgBW). Will continue to monitor pertinent labs and reassess nutrient need prn Labs: No new labs today except for TSH 4.11 H; 11/23/18 Cl 110 H, BUN 26 H, Cr 1.34 H, Tpro 6.2 L, Alb 2.5 L, Fe 33 L, TIBC 231 L, % Sat 13.4 L Skin: Lai scale 18, mod risk, pt's medial sacrum pressure area per adjuster leader. Pls refer to latest casing splitter's notes for further details re: tx plans GI: Pt had 1 BM 11/22/18 per adjuster leader. PES: Altered nutrition related lab values r/t current/chronic medical condition aeb hyperglycemia, hypocapnia, hyperchloremia, elev. renal labs, ALP, hypocalcemia and severe hypoalbuminemia Will continue to monitor PO intake, skin status, pertinent labs and weight trend. F/u in 3 to 5 days. Rec.: 1.) Consider daily MVI with minerals and Asc acid 500 mgs BID. 2.) If Albumin continues trending down with improved renal labs, consider Prostat 1 pkt BID. 3.) Consider Cardiac: 2 gms Na, Low Chol, Low Fat diet. 4.) Continue close supervision and feeding assistance prn during meals. 5.) Refer to RD for further nutrition educ. and weight monitoring upon discharge. 6.) Continue current plan of care. Thank you for this consult.
[2018-11-24 13:00] VITALS: BP 115/55
--- NOTE | 2018-11-24 14:40 | NUR ---
EEG COMPLETED AT BEDSIDE. NATHANIEL ROLAND.
--- NOTE | 2018-11-24 15:57 | NUR ---
Discharge planning per consult, patient has orders for home health for medication monitoring. Presented patient with a choice letter and she chose [facility]. Referral faxed to [facility], placed a follow up call, spoke with Loreta and was advised that they will accept this patient and start of care will be within 24-48 hours of discharge. Nurse Ivon was advised of the discharge plan. Ivon advised the doctor wrote dc notes but not an actual order and she would follow up with the dc status. Addendum: 11/24/18 at 1601 by VICTORIA ALDRIDGE Amended: Links added.
[2018-11-24 17:00] VITALS: BP 119/62
--- NOTE | 2018-11-24 18:05 | NUR ---
Prescriptions Left By Dr Hall Called Call prescriptions into Pt's pharmacy; pura
[2018-11-24 18:06] VITALS: BP 119/62
--- NOTE | 2018-11-24 18:29 | NUR ---
[facility] NARES SENT D/C NARES SENT DUE TO PT BEING IN ICU ON THIS VISIT
--- NOTE | 2018-11-24 18:30 | NUR ---
D/C WOUND PHOTOS TAKEN FOR REFERENCE
--- NOTE | 2018-11-24 18:54 | NUR ---
IV D/C'ED AND TELEBOX REMOVED AND SENT IV TO PT'S R FA REMOVED WITH CATHETER FULLY INTACT. SITE IS ASYMPTOMATIC UPON DISCHARGE. PRESSURE APPLIED WITH GAUZE AND WRAPPED WITH COBAN. PRESSURE APPLIED FOR 3 MINUTES. PT PROVIDED EDUCATION REGARDING KEEPING DRESSING ON FOR 30 MINUTES. TELEBOX REMOVED AND SENT TO ICU
[2018-11-24] MEDS: RIVAROXABAN 15 MG TAB PO SCH (19:02)
== END 2018-11-24 19:46 | disposition home health service (06) | DRG 309 ==
LOC: ICU WEST 23:28 → TELE-WESTW 11-20 13:50
PROVIDERS: ADMIT Internal Medicine Cardiovascular Disease; ATTEND Internal Medicine Cardiovascular Disease
PROC: 30233N1 Transfusion of Nonautologous Red Blood Cells into Peripheral Vein, Percutaneous Approach (ICD-10-PCS; principal; 2018-11-19)
DX: I48.19 Other persistent atrial fibrillation (principal); D68.59 Other primary thrombophilia; K92.2 Gastrointestinal hemorrhage, unspecified; I50.22 Chronic systolic (congestive) heart failure; I11.0 Hypertensive heart disease with heart failure; I08.0 Rheumatic disorders of both mitral and aortic valves; D64.9 Anemia, unspecified; F01.50 Vascular dementia, unspecified severity, without behavioral disturbance, psychotic disturbance, mood disturbance, and anxiety; I25.10 Atherosclerotic heart disease of native coronary artery without angina pectoris; Z86.718 Personal history of other venous thrombosis and embolism; Z87.891 Personal history of nicotine dependence; Z95.5 Presence of coronary angioplasty implant and graft; I69.311 Memory deficit following cerebral infarction
CPT/HCPCS: 36415; 70551; 80048; 80053; 81001; 82607; 82746; 83540; 83550; 83735; 84443; 85025; 85045; 86850; 86900; 86901; 86920; 87081; 87086; 87186; 95819; 97116; 97530; G0378; J0885; J1756; J1956; J3480